=== PATIENT | female | born 2000 ===

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

== ENCOUNTER 2021-05-14 10:02 | Inpatient (IN) ==
[2021-05-14] MEDS: LACTATED RINGERS 1,000 ML IV SCH ×2 (10:35→15:21)
[2021-05-14] MEDS ORDERED: FAMOTIDINE 20 MG/2 ML VIAL IV ONE (10:36)
[2021-05-14] MEDS ORDERED: CLINDAMYCIN INJ 900 MG/50 ML PREMIX IV ONE (10:36)
[2021-05-14] MEDS ORDERED: CITRIC ACID/SODIUM CITRATE 30 ML UDCUP PO ONE (10:36)
[2021-05-14] MEDS ORDERED: OXYTOCIN 10 UNIT/ML VIAL IM ONE (10:39)
[2021-05-14] MEDS ORDERED: OXYTOCIN/LR 30 UNIT/1,000 ML BAG IV ONE (10:39)
[2021-05-14 10:52] LABS: Basophils % 0.2 % (0.0-0.8); Eosinophils # 0.1 10*3/uL (0.0-0.87); Hematocrit 32.2 VOL% (35.7-47.0); Hemoglobin 10.6 GM/DL (12.0-16.0); Immature Granulocytes % 0.4 %; Immature Granulocytes Absolute 0.02 #; Lymphocytes # 0.8 10*3/uL (1.4-4.0); Lymphocytes % 15.4 % (21.3-54.2); Mean Corpuscular HGB Conc 32.9 GM/DL (32-36); Mean Platelet Volume 11.4 FL (9.6-12.0); Monocytes % 8.9 % (1.7-12.7); Neutrophils % 73.1 % (38.7-73.9); Platelet Count 67 T/CUMM (130-400); Red Blood Count 3.01 MC/CUMM (3.8-5.5); Red Cell Distribution Width 14.9 % (9.3-17.3)
[2021-05-14 11:16] LABS: Hypochromasia 1+; Macrocytosis Slight; Platelet Estimate Decreased
[2021-05-14 11:23] LABS: Albumin 2.7 G/DL (3.4-5.0); Bilirubin,Total 0.5 MG/DL (0.20-1.00); Calcium 8.5 MG/DL (8.5-10.1); Osmolality,Calculated 276.5 MOS/KG (273-304); Potassium 4.1 MMOL/L (3.5-5.1); Total Protein 6.8 G/DL (6.4-8.2)
[2021-05-14] MEDS ORDERED: SODIUM CHLORIDE 0.9% 1,000 ML IV PRN (11:49)
[2021-05-14 14:20] LABS: Bilirubin,Urine Negative (Negative); Blood, Urine Negative (Negative); Glucose,Urine (UA) Negative (Negative); Ketones,Urine Negative (Negative); Mucus,Urine Occasional /LPF (Occasional); Nitrite,Urine Negative (Negative); Protein,Urine Negative; RBC,Urine <1 /HPF (0-4); Squamous Epithelial Cell,Urine Occasional /HPF (0-10); Urine Appearance CLEAR (Clear); Urine Color Yellow (Yellow); Urine Specific Gravity 1.016 (1.001-1.035); Urine Urobilinogen < 2.0 EU/DL (0.2-1.0)
[2021-05-14] MEDS ORDERED: miSOPROStoL 200 MCG TABLET ONE (15:29)
[2021-05-14] MEDS ORDERED: METHYLERGONOVINE 0.2 MG/1 ML AMP ONE (15:30)
[2021-05-14] MEDS ORDERED: CARBOPROST TROMETHAMINE 250 MCG/ML AMP IM ONE (15:30)
[2021-05-14] MEDS ORDERED: propofoL 200 MG/20 ML VIAL IV ONE ×2 (15:35→16:03)
[2021-05-14] MEDS ORDERED: LIDOCAINE 2% 5 ML VIAL ONE (15:35)
[2021-05-14] MEDS ORDERED: fentaNYL 100 MCG/2 ML VIAL ONE ×2 (15:35→16:41)
[2021-05-14] MEDS ORDERED: SUCCINYLCHOLINE 200 MG/10 ML VIAL ONE (15:40)
[2021-05-14] MEDS ORDERED: TRANEXAMIC ACID 1,000 MG/10 ML VIAL ONE (15:50)
[2021-05-14] MEDS ORDERED: SODIUM CHLORIDE 0.9% 1,000 ML IV ONE (16:03)
[2021-05-14] MEDS ORDERED: ONDANSETRON 4 MG/2 ML VIAL ONE (16:09)
[2021-05-14] MEDS ORDERED: ePHEDrine 50 MG/ML VIAL ONE (16:10)
[2021-05-14] MEDS ORDERED: ACETAMINOPHEN INJ 1,000 MG/100 ML VIAL IV ONE (16:13)
[2021-05-14] MEDS ORDERED: DEXAMETHASONE 4 MG/1 ML VIAL ONE (16:25)
[2021-05-14] MEDS ORDERED: SEVOFLURANE 1 UNIT/15 MINUTE INH ONE (16:28)
[2021-05-14 16:32] LABS: Cord Venous Blood PO2 49.7 MMHG
[2021-05-14] MEDS ORDERED: RHO(D) IMMUNE GLOBULIN 300 MCG SYRINGE IM ONE (16:46)
[2021-05-14] MEDS ORDERED: OXYTOCIN/LR 20 UNIT/1,000 ML BAG IV ONE (16:46)
[2021-05-14] MEDS ORDERED: ONDANSETRON 4 MG/2 ML VIAL IV PRN (16:46)
[2021-05-14] MEDS ORDERED: SIMETHICONE CHEW 80 MG TABLET PO PRN (16:46)
[2021-05-14] MEDS ORDERED: ACETAMINOPHEN 325 MG TABLET PO PRN (16:46)
[2021-05-14] MEDS ORDERED: LACTATED RINGERS 1,000 ML IV SCH (17:00)
[2021-05-14] MEDS ORDERED: diphenhydrAMINE 50 MG/1 ML VIAL IV PRN (17:58)
[2021-05-14] MEDS ORDERED: hydrOXYzine HCL 25 MG/1 ML VIAL IM PRN (17:58)
[2021-05-14] MEDS ORDERED: HYDROmorphone 2 MG/1 ML VIAL IV PRN (17:58)
[2021-05-14] MEDS ORDERED: ACETAMINOPHEN 500 MG TABLET PO SCH (22:00)
[2021-05-15] MEDS: CLINDAMYCIN INJ 900 MG/50 ML PREMIX IV SCH ×2 (00:03→07:52)
[2021-05-15] MEDS: DOCUSATE SODIUM 100 MG CAPSULE PO SCH ×3 (00:18→21:29)
[2021-05-15 01:21] LABS: Basophils % 0.1 % (0.0-0.8); Hematocrit 27.5 VOL% (35.7-47.0); Hemoglobin 9.2 GM/DL (12.0-16.0); Immature Granulocytes % 0.4 %; Immature Granulocytes Absolute 0.03 #; Lymphocytes # 0.6 10*3/uL (1.4-4.0); Lymphocytes % 8.4 % (21.3-54.2); Mean Corpuscular HGB Conc 33.5 GM/DL (32-36); Mean Corpuscular Volume 106.2 FL (87-102); Mean Platelet Volume 10.8 FL (9.6-12.0); Monocytes % 5.2 % (1.7-12.7); Neutrophils % 85.9 % (38.7-73.9); Platelet Count 97 T/CUMM (130-400); Red Blood Count 2.59 MC/CUMM (3.8-5.5); Red Cell Distribution Width 14.5 % (9.3-17.3); White Blood Count 7.1 T/CUMM (4-12)
[2021-05-15 05:46] LABS: Basophils % 0.2 % (0.0-0.8); Eosinophils % 0.2 % (0.00-10.9); Hematocrit 25.7 VOL% (35.7-47.0); Hemoglobin 8.5 GM/DL (12.0-16.0); Immature Granulocytes % 0.5 %; Immature Granulocytes Absolute 0.03 #; Lymphocytes # 0.9 10*3/uL (1.4-4.0); Lymphocytes % 14.7 % (21.3-54.2); Mean Corpuscular HGB Conc 33.1 GM/DL (32-36); Mean Corpuscular Volume 107.1 FL (87-102); Neutrophils % 74.4 % (38.7-73.9); Platelet Count 89 T/CUMM (130-400); Red Cell Distribution Width 14.7 % (9.3-17.3); White Blood Count 6.4 T/CUMM (4-12)
[2021-05-15 06:06] LABS: Hypochromasia Slight; Platelet Estimate Decreased
[2021-05-15] MEDS: MULTIVITAMIN (PRENATAL) TABLET PO SCH (08:05)
[2021-05-15] MEDS: MAGNESIUM HYDROXIDE SUSP 30 ML UDCUP PO PRN ×2 (08:28→21:29)
[2021-05-15] MEDS: METOCLOPRAMIDE 10 MG TABLET PO SCH ×3 (08:28→23:51)
[2021-05-15] MEDS: IBUPROFEN 800 MG TABLET PO PRN (09:27)
[2021-05-15] MEDS: FERROUS SULFATE 325 MG TABLET PO SCH (21:29)
[2021-05-16] MEDS ORDERED: INFLUENZA VIRUS VACCINE 0.5 ML SYRINGE IM ONE (08:00)
[2021-05-16] MEDS: MULTIVITAMIN (PRENATAL) TABLET PO SCH (08:12)
[2021-05-16] MEDS: DOCUSATE SODIUM 100 MG CAPSULE PO SCH (08:12)
[2021-05-16] MEDS: IBUPROFEN 800 MG TABLET PO PRN (08:13)
[2021-05-16] MEDS: METOCLOPRAMIDE 10 MG TABLET PO SCH (08:13)
[2021-05-16] MEDS: FERROUS SULFATE 325 MG TABLET PO SCH (08:13)
[2021-05-16 09:56] VITALS: BP 112/64
== END 2021-05-16 15:30 | disposition home or self-care (01) | DRG 540 ==
LOC: N.LD 10:02 → N.OB 20:40
PROVIDERS: ADMIT Obstetrics & Gynecology; ATTEND Obstetrics & Gynecology
PROC: LDCSECT (ICD-10-PCS; 2021-05-14 16:00)